=== PATIENT | female | born 1960 | race Caucasian/White ===

== ENCOUNTER 2019-02-28 07:27 | Observation (INO) ==
[2019-02-28] MEDS ORDERED: ASPIRIN PO ONE (07:59)
[2019-02-28] MEDS ORDERED: NITROGLYCERIN TOP ONE (07:59)
--- NOTE | 2019-02-28 08:19 | Diag Imaging Result Doc PS360 ---
CHEST-2 VIEWS - 02/28/2019 INDICATION: chest pain COMPARISON: 07/13/2018 FINDINGS: The lungs are normally expanded and clear. Heart size and mediastinal contours are normal. No pneumothorax or pleural effusion. IMPRESSION: Negative exam. Electronically signed by Julio Spain 02/28/2019 8:17 AM
[2019-02-28 08:20] LABS: BASO# 0.04 X1000 (0.0-0.2); BASO% 0.4 % (0.0-0.8); EOS# 0.31 X1000 (0.0-0.7); EOS% 2.8 % (0.0-10.0); HEMATOCRIT 38.9 % (37.0-47.0); HEMOGLOBIN 12.2 g/dL (12.0-16.0); IMM GRAN# 0.03 X1000 (0.0-0.04); IMM GRAN% 0.3 % (0.0-0.5); LYMPH# 3.86 X1000 (1.2-3.4); LYMPH% 34.3 % (20.5-51.1); MCH 31.4 PG (27-31); MCHC 31.4 g/dL (33-37); MONO# 0.79 X1000 (0.11-0.59); MPV 10.1 FL (7.4-10.4); NEUT# 6.21 X1000 (1.4-6.5); NEUT% 55.2 % (42.2-75.2); PLT 350 X1000 (130-400); RBC 3.89 XMIL (4.2-5.4); RDW 13.3 % (11.5-14.5); WBC 11.24 X1000 (4.8-10.8)
[2019-02-28 08:33] LABS: ALB/GLOB RATIO 1.5; ALBUMIN 3.8 g/dL (3.5-5.0); CALCIUM 9.3 mg/dL (8.8-10.2); CREATININE 1.2 mg/dL (0.5-0.9); POTASSIUM 4.2 mmol/L (3.5-5.1); TOTAL BILIRUBIN 0.15 mg/dL (0.20-1.00); TOTAL PROTEIN 6.4 g/dL (6.3-8.3)
--- NOTE | 2019-02-28 08:49 | PROVIDER DOCUMENTATION ---
HPI-Chest Pain - General Chief Complaint: Chest Pain Stated Complaint: CP Time Seen by Provider: 02/28/19 07:52 Allergies/Adverse Reactions: Patient Allergies Allergy/AdvReac Type Severity Reaction Status Date / Time Quinolones AdvReac ANAPHYLAXIS Verified 07/13/18 09:24 Home Medications: Home Medication List Medication Instructions Recorded Confirmed Last Taken Type Albuterol [Proventil] 4 mg PO BID 10/31/13 07/13/18 02/28/15 History Fentanyl 1 patch TOP EVERY OTHER DAY 10/31/13 07/13/18 07/12/18 History Levothyroxine [Synthroid] 150 microgm PO DAILY 10/31/13 07/13/18 02/28/15 History Montelukast Sodium [Singulair] 10 mg PO DAILY 10/31/13 07/13/18 02/28/15 History Oxycodone HCl/Acetaminophen 1 each PO 4XDAY PRN 10/31/13 07/13/18 02/28/15 History [Percocet 10-325 mg Tablet] Fluticasone 50 Mcg Nasal [place] 1 spray INTRANASAL DAILY #1 bottle 07/13/18 Unknown Rx [Flonase] Levocetirizine Dihydrochloride 5 mg PO DIRECTED 07/13/18 07/13/18 Unknown H istory [Xyzal] Methocarbamol [Robaxin] 500 mg PO DIRECTED 07/13/18 07/13/18 Unknown History Prednisone 10 mg PO DIRECTED #9 tab 07/13/18 Unknown Rx - History of Present Illness-CP Location: reports: substernal Chest Pain Radiation: reports: arms Quality of Pain: reports: dull Severity in ED: moderate Onset/Duration: unsure Timing: still present Context/Activities at Onset: reports: light activity Modifying Factors: improves with: nothing Associated Symptoms: reports: shortness of breath Nitro Today/Relief: no nitro taken today Aspirin Treatment Today: no aspirin today Prior Chest Pain/Cardiac Workup: reports: stress test (several years ago) Similar Symptoms Previously?: Yes Recently Seen Here or By Another Healthcare Provider: Yes (pcp with dyspnea, scheduled for stress test tomorrow.) Review of Systems - Adult - REVIEW OF SYSTEMS - ADULT Constitutional: reports: no symptoms reported Eyes: reports: no symptoms reported Ears, Nose, Mouth & Throat: reports: no symptoms reported Cardiovascular: reports: chest pain Respiratory: reports: see HPI, shortness of breath Gastrointestinal: reports: no symptoms reported Genitourinary: reports: no symptoms reported Musculoskeletal: reports: no symptoms reported Integumentary: reports: no symptoms reported Neurological: reports: no symptoms reported Psychiatric: reports: no symptoms reported Endocrine: reports: no symptoms reported Hematologic/Lymphatic: reports: no symptoms reported Allergic/Immunologic: reports: no symptoms reported All Other Systems: Reviewed and Negative Past History - Adult - PAST MEDICAL HISTORY-ADULT Review of Records: reports: Old Records Reviewed Major Childhood Illnesses: reports: denies history Cardiovascular: reports: hyperlipidemia Respiratory: reports: asthma Gastrointestinal: reports: denies history Obstetrical/Gynecological: reports: denies history Genitourinary: reports: denies history Musculoskeletal: reports: chronic pain, fibromyalgia, intervertebral disc disease Neurological: reports: denies history Psychiatric: reports: anxiety Endocrine/Immune: reports: denies history Other Conditions: reports: denies history - PRIOR SURGERIES/PROCEDURES Surgical/Procedure History: reports: cholecystectomy, hysterectomy, tonsillectomy, orthopedic (extremity) - PRIOR HOSPITALIZATIONS Prior Hospitalizations: reports: none - IMMUNIZATION STATUS Childhood Immunizations: See Nurse Assessment Flu Vaccine: See Nurse Assessment - FAMILY HISTORY Family History: PE/DVT, other (NH) Physical Exam-General - PHYSICAL EXAM-ADULT Initial Vital Signs Reviewed: Yes - CONSTITUTIONAL General Appearance: appears well, alert, mild distress - EYES Eyes: PERRL/EOMI - HEAD, EARS, NOSE, MOUTH & THROAT HENMT: normocephalic/atraumatic - NECK Neck: non-tender, full range of motion - RESPIRATORY Respiratory: chest non-tender, lungs clear, normal breath sounds - CARDIOVASCULAR Cardiovascular: normal peripheral pulses, regular rate, rhythm, no edema. negative: JVD - GASTROINTESTINAL (ABDOMEN) Abdominal Exam: non tender, soft - MUSCULOSKELETAL Back Exam: normal inspection, no CVA tenderness Extremity: normal range of motion, non-tender - SKIN Integumentary: normal color, normal turgor - NEUROLOGIC Neurologic: manager android II-XII nml as tested, grossly normal - PSYCHIATRIC Psych/Mental Status: normal mood/affect, oriented x 3 - HEART Score HEART Score: History: Moderately Suspicious HEART Score: ECG: Non-Specific Repolarization Disturbance/LBBB/PM HEART Score: Age: 45-65 Years HEART Score: Risk Factors for Atherosclerotic Disease: 1 or 2 Risk Factors HEART Score: Troponin: < or = Normal Limit Total HEART Score:: 4 Progress - PLAN OF CARE/RESULTS Progress/Plan/Lab Results: Vital Signs - 8 hr 02/28/19 07:31 02/28/19 07:44 02/28/19 08:00 Temperature 98.2 F Pulse Rate 102 H 89 79 Respiratory Rate 20 15 16 Blood Pressure 163/87 145/83 145/83 O2 Sat by Pulse Oximetry 100 98 99 Laboratory Results - last 24 hr 02/28/19 02/28/19 02/28/19 08:07 08:07 08:07 WBC 11.24 H RBC 3.89 L Hgb 12.2 Hct 38.9 MCV 100.0 H MCH 31.4 H MCHC 31.4 L RDW Std Deviation 13.3 Plt Count 350 MPV 10.1 Immature Gran % (Auto) 0.3 Neut % (Auto) 55.2 Lymph % (Auto) 34.3 [place] % (Auto) 7.0 Eos % (Auto) 2.8 Baso % (Auto) 0.4 Immature Gran # (Auto) 0.03 Neut # (Auto) 6.21 Lymph # (Auto) 3.86 H [place] # (Auto) 0.79 H Eos # (Auto) 0.31 Baso # (Auto) 0.04 Sodium 136 Potassium 4.2 Chloride 96 L Carbon Dioxide 26 Anion Gap 14 BUN 21 Creatinine 1.2 H Estimated GFR/1.73 m2 46 BUN/Creatinine Ratio 18 Glucose 99 Calculated Osmolality 275 Calcium 9.3 Total Bilirubin 0.15 L AST 13 ALT 7 L Alkaline Phosphatase 69 Troponin T < 0.010 Total Protein 6.4 Albumin 3.8 Globulin 2.6 Albumin/Globulin Ratio 1.5 Orders Category Date Time Status Admit [facility] Routine AdmDCTranf 02/28/19 08:52 Active CHEST-2 VIEWS [RAD] Stat Exams 02/28/19 07:58 Completed CBC WITH ELECTRONIC DIFF [HEME] Stat Lab 02/28/19 08:07 Completed COMPREHENSIVE METABOLIC PANEL [CHEM] Stat Lab 02/28/19 08:07 Completed PRO B-NATRIURETIC PEPTIDE Stat Lab 02/28/19 08:07 Received TROPONIN T Stat Lab 02/28/19 08:07 Completed Aspirin Med 02/28/19 07:59 Discontinued 325 mg PO NOW ONE Nitroglycerin Med 02/28/19 07:59 Discontinued 1 inch TOP NOW ONE EKG [EKG] Stat Ther 02/28/19 07:35 Ordered 0855: reeval: patient reports improvement in her symptoms. Discussed with hospitalist with plan for admission. Result Diagrams: 02/28/19 08:07 02/28/19 08:07 - EKG 1 EKG Read and Signed by:: Salo Verdugo ([email or web address] no [email or web address]) - XRAY 1 XRAY Interpretation: cxr: nad per radiology Departure - Departure Date of Disposition Decision: 02/28/19 Time of Disposition Decision: 08:56 DIAGNOSIS: Chest pain Qualifiers: Chest pain type: unspecified Qualified Code(s): R07.9 - Chest pain, unspecified Disposition: ADMITTED INPATIENT 09 Certified Medical Emergency: Emergent Condition: Serious Referrals and Follow-Ups: Lata Serrano CRNP [Primary Care Provider] - - Critical Care Note This patient required my direct & personal management of CC.: No Attestation - Physician/ CHELA Attestation Patient care was provided by Advanced Practice Provider:: No The physician spent face to face time with patient:: Yes Advanced Practice Provider documentation review:: Supervising physician onsite and consulted in the evaluation and care of this patient. The physician did have a face to face encounter with the patient.
[2019-02-28] MEDS ORDERED: NORCO-5 PO ONE (09:27)
[2019-02-28] MEDS ORDERED: NITROGLYCERIN SL PRN (09:37)
[2019-02-28] MEDS ORDERED: ZOFRAN IV PRN (09:37)
[2019-02-28] MEDS ORDERED: TYLENOL PO PRN (09:37)
[2019-02-28] MEDS: ASPIRIN PO SCH (13:10)
[2019-02-28] MEDS: KLONOPIN PO PRN ×2 (13:13→21:35)
--- NOTE | 2019-02-28 14:45 | ECHO REPORT ---
ORDER DATE: 02/28/2019 INTERPRETING PHYSICIAN: Dr. Garfield Blankenship. ECHOCARDIOGRAPHIC MEASUREMENTS: 1. Interventricular septum: 0.9 cm. 2. Left ventricular posterior wall: 0.9 cm. 3. Diastolic diameter: 5.0 cm. 4. Left atrium: 3.3 cm. 5. Aorta: 2.9 cm. SUMMARY OF THE 2-DIMENSIONAL IMAGIN. Aortic valve leaflets were trileaflet. 2. Pulmonic valve was normal. There is trace pulmonary regurgitation. 3. Mitral valve was normal. 4. Tricuspid valve was normal. 5. Normal left ventricular cavity size. Estimated ejection fraction of 65%. 6. There is mild mitral regurgitation. 7. Peak velocity across the aortic valve less than 2 m/sec. There is no aortic stenosis. There is mild aortic regurgitation. 8. There is mild tricuspid regurgitation. Peak velocity across the tricuspid valve was 2.4 m/sec. 9. Pulmonary artery systolic pressure of 34 mmHg. 10. There is no pericardial effusion or obvious intracardiac mass or thrombus seen. cc: Garfield Blankenship MD
[2019-02-28] MEDS: PERCOCET-10 PO PRN ×2 (15:28→21:35)
[2019-02-28] MEDS ORDERED: DURAGESIC 75 MICROGM/HR PATCH TD SCH (16:00)
[2019-02-28] MEDS: ZYRTEC PO SCH (16:39)
--- NOTE | 2019-02-28 17:05 | EKG Report ---
Test Performed on : 02/28/2019 07:41:01 AM Test Reason : chest pain Blood Pressure : / mmHG Vent. Rate : 097 BPM Atrial Rate : 097 BPM P-R Int : 158 ms QRS Dur : 064 ms QT Int : 352 ms P-R-T Axes : 107 009 014 degrees QTc Int : 447 ms Normal sinus rhythm. Minimal voltage criteria for LVH, may be normal variant Junctional ST depression, probably abnormal Abnormal ECG When compared with ECG of 13-JUL-2018 11:02, No significant change was found Unconfirmed Result
--- NOTE | 2019-02-28 17:58 | HISTORY AND PHYSICAL ---
PRIMARY CARE PROVIDER: ANDREEA Ruiz. CHIEF COMPLAINT: Chest heaviness. HISTORY OF PRESENT ILLNESS: Ms. Crum is a 59-year-old female with a past medical history of hyperlipidemia, asthma, fibromyalgia, anxiety, chronic pain syndrome, low back pain with muscle spasms, hypothyroidism, who reported that she was a awoken from her sleep around 7:15 a.m. with chest heaviness that went across her chest and down both arms. It was associated with shortness of breath, palpitations, diaphoresis. Her face felt flushed. The pain was a 7/10. Nitroglycerin did help ease the pain. However, it returned. She did report when she was getting her echocardiogram she did get nauseous. She does have a slight headache, but she believes it is from lack of caffeine. Workup in the ED has revealed 1 set of negative cardiac enzymes. Per ED physician report, she has had 2 negative EKGs. They are not loaded into the computer and I did not have any physical copies. We will admit her for a chest pain rule out. PAST MEDICAL HISTORY: 1. Hyperlipidemia. 2. Asthma. 3. Fibromyalgia. 4. Anxiety. 5. Chronic pain syndrome. 6. Low back pain with muscle spasms. 7. Hypothyroidism. PAST SURGICAL HISTORY: 1. Cholecystectomy. 2. Hysterectomy. 3. Tonsillectomy. 4. Shoulder surgery. 5. Nasal surgery. 6. Removal of bone spurs. SOCIAL HISTORY: She is . No alcohol, tobacco, or illicit drug use. FAMILY HISTORY: Father with [place] secondary to a DVT at the age of 78. Mother with DVT and angina. Sister with angina. ALLERGIES: To quinolones, anaphylaxis. MEDICATIONS: Home medications are currently being compiled. REVIEW OF SYSTEMS: Twelve-point review of systems completely negative except for those mentioned in HPI. No fever. No chills. No cough. No abdominal pain. Waxing and waning constipation secondary to pain medication use from her chronic pain. She did report that she has been put on Lasix for some bilateral lower extremity swelling, as well as an enlarged heart, for which she was being set up for a stress test in the a.m. by her PCP. PHYSICAL EXAMINATION: VITAL SIGNS: Temperature is 98.3 degrees, heart rate 72, respirations 18, blood pressure 113/59, O2 is 97% on room air. GENERAL: Ms. Crum is a pleasant, 59-year-old female who is sitting up on the stretcher, in no acute distress. HEENT: Atraumatic, normocephalic. PERRL. NECK: Supple. Trachea midline. CARDIOVASCULAR: S1, S2 appreciated. No murmurs, gallops, rubs noted. RESPIRATORY: Lung sounds clear bilaterally. GI: Soft, nontender, nondistended. Positive bowel sounds 4 quadrants. EXTREMITIES: Lower extremities were negative for edema. Bilateral pedal pulses were palpable. SKIN: Appeared to be warm, dry, and intact. NEUROLOGIC: No focal deficits noted. DIAGNOSTIC DATA: Chest x-ray, negative exam. EKGs are not loaded into the system. Do not have any physical copies. LABORATORY DATA: White count 11, hemoglobin and hematocrit 12 and 38, platelet count is 350,000. Sodium 136, potassium 4.2, BUN 21, creatinine 1.2, blood glucose 99. Troponin less than 0.010. ASSESSMENT AND PLAN: 1. Chest pain rule out. We will continue to trend her cardiac enzymes. We will check an echocardiogram, lipid profile. Set her up with an EKG in the a.m. Continue with nitroglycerin p.r.n. for chest pain. We will recheck an EKG in the a.m. We will consult Cardiology if warranted, pending findings of the echo and stress test. Continue with full- dose aspirin. 2. Hyperlipidemia. The patient I did not believe is on a statin. We will check a lipid profile. 3. Asthma. We will continue home medications when reconciled. 4. Fibromyalgia. We will continue home medications when reconciled. 5. Anxiety. Patient has been on Klonopin in the past. We will order that p.r.n. She is a little bit anxious at this time given everything that is going. 6. Chronic pain secondary to fibromyalgia, as well as low back pain with back spasms. Again, we will continue her home regimen when compiled. 7. Recent diagnosis of bilateral lower extremity swelling and enlarged heart per her report with a new diagnosis from her PCP and was started on 80 mg of Lasix daily. Again, we will follow up with an echocardiogram as well as a stress test. Her proBNP is 25. 8. Further recommendations to follow physician evaluation, laboratory and diagnostic data. Dictated by ANDREEA Lazo for Lucius Reese MD cc: MD Lata Romo CRNP
[2019-02-28] MEDS: NS 1,000 ML IV SCH (18:11)
[2019-02-28] MEDS ORDERED: PRAVACHOL PO SCH (21:00)
--- NOTE | 2019-03-01 03:56 | HISTORY AND PHYSICAL ---
Patient came in with chest pain, which I feel is a bit atypical. She has fibromyalgia. She was due for an outpatient cardiac workup, but had persistent chest pain, so she came in for evaluation. She was placed in Observation. So far, the workup is negative. Echo is unremarkable. We will continue serial enzymes, pursue myocardial perfusion imaging, and follow closely, and probably hold her Lasix. DISPOSITION: Pending her clinical status. Her echo thus far is negative, as is the rest of her workup. If stable, she will likely go home tomorrow. This is a [id number] encounter note with Krystal Goff. cc: Lucius Reese MD
[2019-03-01] MEDS ORDERED: SYNTHROID PO SCH (07:00)
[2019-03-01] MEDS ORDERED: PRILOSEC PO SCH (07:00)
[2019-03-01 07:20] LABS: BASO# 0.06 X1000 (0.0-0.2); BASO% 0.6 % (0.0-0.8); EOS# 0.31 X1000 (0.0-0.7); EOS% 3.1 % (0.0-10.0); HEMATOCRIT 37.6 % (37.0-47.0); HEMOGLOBIN 11.5 g/dL (12.0-16.0); IMM GRAN# 0.02 X1000 (0.0-0.04); IMM GRAN% 0.2 % (0.0-0.5); LYMPH# 2.95 X1000 (1.2-3.4); LYMPH% 29.6 % (20.5-51.1); MCH 31.1 PG (27-31); MCHC 30.6 g/dL (33-37); MCV 101.6 FL (81-99); MPV 10.1 FL (7.4-10.4); NEUT# 5.71 X1000 (1.4-6.5); NEUT% 57.5 % (42.2-75.2); PLT 347 X1000 (130-400); RDW 13.4 % (11.5-14.5); WBC 9.95 X1000 (4.8-10.8)
--- NOTE | 2019-03-01 07:20 | Diag Imaging Result Doc PS360 ---
EXAM: CHEST-PORTABLE 03/01/2019 HISTORY: Chest Pain TECHNIQUE: AP portable at 0605 COMMENT: The inspiration is suboptimal. Compared to 02/28/2019 there has been no significant change. IMPRESSION: No evidence of acute disease. Electronically signed by Scott Leal 03/01/2019 7:18 AM
[2019-03-01 07:46] LABS: AGAP 11; BUN 21 mg/dL (8-22); CALCIUM 9.3 mg/dL (8.8-10.2); CHLORIDE 105 mmol/L (98-107); CHOLESTEROL 171 mg/dL (0-200); COSMO 290; ESTIMATED GFR 56; GLUCOSE 95 mg/dL (70-104); HDL 69 mg/dL (45-65); LDL 87 mg/dL; MAGNESIUM 2.2 mg/dL (1.5-2.7); POTASSIUM 4.2 mmol/L (3.5-5.1); SODIUM 144 mmol/L (136-145); TCO2 28 mmol/L (25-35); TRIGLYCERIDES 76 mg/dL (35-135); VLDL 15 mg/dL
--- NOTE | 2019-03-01 07:49 | EKG Report ---
Test Performed on : 03/01/2019 07:29:14 AM Test Reason : CP Blood Pressure : / mmHG Vent. Rate : 064 BPM Atrial Rate : 064 BPM P-R Int : 154 ms QRS Dur : 080 ms QT Int : 438 ms P-R-T Axes : 039 016 028 degrees QTc Int : 451 ms Normal sinus rhythm. Normal ECG When compared with ECG of 28-FEB-2019 07:41, (Unconfirmed) Vent. rate has decreased BY 33 BPM Unconfirmed Result
[2019-03-01 08:02] LABS: FREE T4 1.16 ng/dL (0.93-1.70)
[2019-03-01 08:09] LABS: TSH 17.4 uIUmL (0.27-4.20)
[2019-03-01] MEDS ORDERED: LASIX PO SCH (09:00)
[2019-03-01] MEDS: ZYRTEC PO SCH ×2 (10:06→10:12)
[2019-03-01] MEDS: NS 1,000 ML IV SCH ×2 (10:06→18:09)
[2019-03-01] MEDS: ASPIRIN PO SCH ×2 (10:06→10:11)
[2019-03-01] MEDS: SINGULAIR PO SCH ×2 (10:06→10:12)
[2019-03-01 12:05] VITALS: BP 114/53
[2019-03-01] MEDS ORDERED: LEXISCAN ONE (14:32)
[2019-03-01] MEDS: ROBAXIN PO SCH ×2 (16:05→16:08)
[2019-03-01] MEDS: PERCOCET-10 PO PRN (16:08)
--- NOTE | 2019-03-01 17:48 | Diag Imaging Result Document ---
PROCEDURE NAME: MYOCARDIAL PERF SCAN, STR/REST - 03/01/2019 STUDY: Rest/stress walking Lexiscan myocardial perfusion study. INDICATION: Evaluation of chest pain. REQUESTING PHYSICIAN: Hospitalist and Dr. Robin Carmichael. DESCRIPTION: The patient came into the nuclear lab and received a rest injection of technetium 99 sestamibi 121.5 mCi. Multiple tomographic views of the cardiac structures were obtained at rest. Subsequently, the patient underwent a walking Lexiscan protocol with infusion of 0.4 mg Lexiscan. At peak infusion, she was injected with technetium 99 sestamibi 38.7 mCi. Multiple tomographic views of the cardiac structures were obtained following the completion of the exercise protocol. SUMMARY OF THE ELECTROCARDIOGRAPHIC PORTION OF THE STUDY: Resting electrocardiogram shows sinus rhythm with a rate of 68 beats per minute. Resting blood pressure 127/72. Resting ECG showed no significant abnormalities. During the protocol, the heart rate increased to 128 beats per minute, representing 75% of maximum predicted heart rate for her age. Blood pressure went up to 148/80. Peak infusion ECG showed sinus tachycardia without any ischemic changes. The patient reported no chest pain, shortness of breath, or palpitations. Following the completion of the testing, the heart rate and blood pressure returned back to their baseline. In summary, the electrocardiographic response to a walking Lexiscan protocol is normal. SUMMARY OF THE MYOCARDIAL PERFUSION PORTION OF THE STUDY: Poststress tomographic views of the left ventricle showed essentially normal myocardial perfusion. There is no convincing evidence of any postexercise defect. The rest images showed normal perfusion. The polar plots reveal the same. There is no convincing evidence of inducible ischemia or myocardial scar. Gated SPECT shows normal left ventricular systolic function, and ejection fraction using the [place] Tool protocol of 75%. Using the Myometric protocol, the ejection fraction is 66%. The lung/heart ratio is normal at 0.42. The TID is normal at 1. SUMMARY: This study shows: 1. Normal electrocardiographic response to the walking Lexiscan protocol. 2. Normal poststress myocardial perfusion scan. There is no scintigraphic evidence of pharmacologically induced myocardial ischemia. 3. Normal left ventricular systolic function with ejection fraction of 75% with normal ventricular volumes and no wall motion abnormality. The study represents a low risk for ischemic events. cc: Harley Mott MD
--- NOTE | 2019-03-01 19:28 | PROGRESS NOTE ---
DATE: 03/01/2019 SUBJECTIVE: Patient reports feeling fine. She reports chest pain is resolved. OBJECTIVE: Vital Signs: Temperature 97.7 degrees, heart rate 67, respiratory 19, blood pressure 114/53, O2 saturation 99% on room air. General: This is a 59-year-old female lying in bed, in no acute distress. Cardiovascular: S1, S2 heard. No murmurs, gallops, or rubs. Regular rate and rhythm. Respiratory: Clear bilaterally to auscultation. No work of breathing or using accessory muscles. Abdomen: Soft, nontender to palpation. Bowel sounds present. No organomegaly. Extremities: No clubbing, cyanosis, or edema. Peripheral pulses present in both legs. Neurological: Patient alert oriented x3. Moves 4 extremities. LABORATORY DATA: Reviewed. ASSESSMENT AND PLAN: 1. Chest pain, rule out. 2. Hyperlipidemia. 3. Asthma. 4. Fibromyalgia. 5. Anxiety disorder. 6. Chronic pain syndrome. The patient has been admitted to the hospital for chest pain rule out. Lexiscan is going to be performed today. We will see what it shows. If the exam is negative, then we will send her over for fibromyalgia and anxiety disorder. She has been started on home medications. Apparently, she has been diagnosed with bilateral lower extremity swelling and enlarged heart, so the echocardiogram that we have ordered her showed ejection fraction of 65% with no pericardial effusion. Pulmonary artery systolic pressure 34. At this point, we will continue to monitor. For asthma, we will continue home medications. As mentioned before, if her Lexiscan tomorrow is more negative, we will let her go. cc: Juan Manuel Daigle MD
--- NOTE | 2019-03-03 17:19 | DISCHARGE SUMMARY ---
ADMISSION DATE: 02/28/2019 DISCHARGE DATE: 03/01/2019 DISCHARGE DIAGNOSES: 1. Chest pain. Resolved. Acute coronary syndrome ruled out. 2. Hyperlipidemia. 3. Asthma. 4. Fibromyalgia. 5. Anxiety disorder. 6. Chronic pain secondary to fibromyalgia. CONSULTATIONS: None. PROCEDURES: 1. Chest x-ray done on admission showed negative exam. 2. Echocardiogram showed ejection fraction of 55% with pulmonary artery systolic pressure 34. No pericardial effusion. No obvious intracardiac mass or thrombus seen. 3. Myocardial perfusion scan in Nuclear Medicine showed normal electrocardiographic response to the walking Lexiscan protocol. Normal left ventricular systolic function, 75% ejection fraction. At the conclusion of the study, represents low risk for ischemic events. HOSPITAL COURSE: This is a 59-year-old female with past medical history of hyperlipidemia, asthma and fibromyalgia, who presented to the emergency department complaining of chest pain that went across her chest and down her arm. So the ER doctor as usual suspected acute coronary syndrome, so this patient was admitted for that condition. We checked troponins 3 times. We ordered this as above and those were negative. Patient clinically reports feeling better. Not complaining of any chest pain. So, she was discharged in stable condition. DISCHARGE PHYSICAL EXAMINATION: Vital Signs: Temperature 97.7 degrees, heart rate 57, respiratory rate 19, blood pressure 114/53, O2 saturation 99% on room air. General Examination: This is a 59-year-old female, lying in bed in no acute distress. Cardiovascular exam: S1, S2 heard. No murmurs, gallops, or rubs. Regular rate and rhythm. Respiratory exam: Clear bilaterally to auscultation. No work of breathing or using accessory muscles. Abdomen: Soft, nontender to palpation. Bowel sounds present. No organomegaly. Extremities: No clubbing, cyanosis, or edema. Peripheral pulses present in both legs. Neurological exam: The patient alert and oriented x3. Moves 4 extremities. DISCHARGE DISPOSITION: Home to self-care. MEDICATION: We are not making any changes to his current medications. FOLLOWUP: Follow up with Lata DORAN, in a week. cc: MD LEVI Hernandez
== END 2019-03-01 19:27 | disposition home or self-care (01) ==
LOC: ED 07:27 → SUATTDRO 09:20 → INTOOBSV 09:20 → EDIPHOLD 09:20 → 3N 12:46
PROVIDERS: ATTEND Internal Medicine